=== PATIENT | female | born 1950 | race Caucasian/White ===

== ENCOUNTER 2024-08-05 12:05 | Inpatient (IN) ==
[2024-08-05] MEDS ORDERED: IOPAMIDOL 100 ML BOTTLE IV ONE (12:06)
[2024-08-05] MEDS: 0.9 % SODIUM CHLORIDE 1,000 ML IV ONE (12:58)
[2024-08-05] MEDS: 0.9 % SODIUM CHLORIDE 500 ML IV ONE (13:03)
[2024-08-05 13:33] LABS: Basophils # (Auto) 0.01 K/mcL (0.00-0.30); Basophils % (Auto) 0.1 % (0.0-2.0); Eosinophils # (Auto) 0.01 K/mcL (0.00-0.70); Eosinophils % (Auto) 0.1 % (0.0-7.0); Hematocrit 25.6 % (34.1-44.9); Hemoglobin 7.5 g/dL (11.2-15.7); Lymphocytes # (Auto) 0.38 K/mcL (1.50-4.80); Lymphocytes % (Auto) 3.7 % (15.5-49.0); Mean Cell Volume 83.4 fL (80.0-100.0); Mean Corpuscular HGB Conc 29.3 g/dL (31.0-36.0); Mean Platelet Volume 8.9 fL (8.8-12.5); Monocytes # (Auto) 1.13 K/mcL (0.10-0.90); Monocytes % (Auto) 10.9 % (1.0-12.0); Neutrophils % (Auto) 84.5 % (38.0-78.0); Platelet Count 461 K/mcL (140-440); RBC 3.07 M/mcL (3.59-5.38); Red Cell Distribution Width 16.7 % (11.5-14.5); WBC 10.4 K/mcL (4.5-11.0)
[2024-08-05 13:36] LABS: ABG Methemoglobin 0.2 % (0.4-1.5); Total Hemoglobin 8.7 gm/Dl (12.0-15.0); VBG Base Excess 6 (-2-3); VBG HCO3 27.7 mmol/L (24.0-28.0); VBG Oxygen Saturation 63.3 % (40.0-70.0); VBG PCO2 30.4 mmHg (41.0-51.0); VBG PH 7.58 U (7.32-7.42); VBG PO2 29.7 mmHg (25.0-40.0); VBG Total CO2 28.7 mmol/L (25.0-29.0)
[2024-08-05 13:44] LABS: ALT/SGPT 17 U/L (<40); AST/SGOT 42 U/L (<32); Albumin 2.9 gm/dL (3.2-5.2); Albumin/Globulin Ratio 0.7 (1.0-2.3); Alkaline Phosphatase 155 U/L (39-117); Bilirubin,Total 0.8 mg/dL (0.1-1.0); Blood Urea Nitrogen 7 mg/dL (8-23); Calcium 9.4 mg/dL (8.6-10.4); Carbon Dioxide 27 mmol/L (22-30); Chloride 94 mmol/L (96-108); Glomerular Filtration Rate 85; Glucose 103 mg/dL (70-105); Sodium 137 mmol/L (133-145); Thyroid Stimulating Hormone 0.93 uIU/mL (0.27-5.01)
[2024-08-05] MEDS: 0.9 % SODIUM CHLORIDE 250 ML IV SCH ×2 (14:09→20:05)
[2024-08-05 15:04] LABS: Appearance,Urine Hazy (Clear); Bilirubin,Urine Negative (Negative); Color,Urine Yellow; Glucose,Urine (UA) Negative (Negative); Ketones,Urine Negative (Negative); Leukocyte Esterase,Urine 3+(Large) /uL (Negative); Nitrate,Urine Negative (Negative); Protein,Urine Trace mg/dL (Negative); Specific Gravity,Urine 1.015 (1.000-1.035); Urine Blood Negative (Negative); Urine RBC 2 /hpf (0-3); Urine Squamous Epithelial Cell 1 /hpf (0-4); Urine Transitional Epi Cells 1 /hpf (0-2); Urine WBC 50 /hpf (0-4); Urobilinogen,Urine Normal
[2024-08-05] MEDS: cefTRIAXone 2 GM in DEXTROSE 5% IN WATER 50 ML IV ONE (15:39)
[2024-08-05] MEDS: POTASSIUM CHLORIDE 20 MEQ TABLET PO ONE (18:04)
[2024-08-05 18:46] LABS: Creatine Kinase 19 U/L (24-170)
[2024-08-05] MEDS ORDERED: morphine 4 MG/ML VIAL IV PRN (21:17)
[2024-08-05] MEDS ORDERED: POLYETHYLENE GLYCOL 3350 17 GM PACKET PO PRN (21:17)
[2024-08-05] MEDS ORDERED: SENNOSIDES 1 TABLET PO PRN (21:17)
[2024-08-05] MEDS: CYCLOBENZAPRINE 10 MG TABLET PO PRN (21:31)
[2024-08-05] MEDS: METOCLOPRAMIDE 10 MG/2 ML VIAL IV SCH (21:31)
[2024-08-05] MEDS: HEPARIN 5,000 UNIT/ML VIAL SQ SCH (21:32)
[2024-08-05] MEDS: 0.9 % SODIUM CHLORIDE 10 ML SYRINGE IV SCH (21:37)
[2024-08-05] MEDS: DEXTROSE 5%-1/2NS 1,000 ML IV SCH (21:40)
[2024-08-05] MEDS: 0.9 % SODIUM CHLORIDE 1,000 ML IV SCH (22:04)
[2024-08-05 22:57] LABS: Hematocrit 26.5 % (34.1-44.9); Hemoglobin 7.8 g/dL (11.2-15.7)
[2024-08-05 23:36] LABS: Iron 51 ug/dL (37-145); TIBC Calculation 139 ug/dl (228-428); Transferrin % Saturation 37 % (15-50)
[2024-08-06] MEDS: POTASSIUM CHLORIDE 20 MEQ in DEXTROSE 5% IN WATER 100 ML IV ONE (03:30)
[2024-08-06] MEDS: POTASSIUM CHLORIDE 20 MEQ/10 ML VIAL IV ONE (03:30)
[2024-08-06] MEDS: POTASSIUM CHLORIDE 20 MEQ TABLET PO ONE ×2 (03:32)
[2024-08-06] MEDS: ONDANSETRON 4 MG/2 ML VIAL IV PRN (03:44)
[2024-08-06 06:24] LABS: Basophils # (Auto) 0.02 K/mcL (0.00-0.30); Basophils % (Auto) 0.3 % (0.0-2.0); Eosinophils # (Auto) 0.06 K/mcL (0.00-0.70); Eosinophils % (Auto) 0.8 % (0.0-7.0); Hematocrit 25.7 % (34.1-44.9); Hemoglobin 7.8 g/dL (11.2-15.7); Lymphocytes # (Auto) 0.25 K/mcL (1.50-4.80); Lymphocytes % (Auto) 3.4 % (15.5-49.0); Mean Corpuscular HGB Conc 30.4 g/dL (31.0-36.0); Mean Platelet Volume 8.5 fL (8.8-12.5); Monocytes % (Auto) 13.6 % (1.0-12.0); Neutrophils % (Auto) 80.5 % (38.0-78.0); Platelet Count 379 K/mcL (140-440); RBC 3.06 M/mcL (3.59-5.38); Red Cell Distribution Width 16.6 % (11.5-14.5); WBC 7.4 K/mcL (4.5-11.0)
[2024-08-06 07:23] LABS: ALT/SGPT 16 U/L (<40); AST/SGOT 42 U/L (<32); Albumin 2.6 gm/dL (3.2-5.2); Albumin/Globulin Ratio 0.8 (1.0-2.3); Alkaline Phosphatase 136 U/L (39-117); Bilirubin,Direct 0.3 mg/dL (<0.3); Bilirubin,Total 0.6 mg/dL (0.1-1.0); Blood Urea Nitrogen 7 mg/dL (8-23); Calcium 8.7 mg/dL (8.6-10.4); Carbon Dioxide 27 mmol/L (22-30); Chloride 104 mmol/L (96-108); Globulin 3.4 gm/dL (2.2-3.7); Glomerular Filtration Rate 90; Glucose 104 mg/dL (70-105); Lactate Dehydrogenase 127 U/L (135-225); Phosphorous 2.5 mg/dL (2.5-4.5); Sodium 142 mmol/L (133-145); Triglycerides 124 mg/dL (<150); Uric Acid 3.8 mg/dL (2.5-8.0)
[2024-08-06] MEDS: ACETAMINOPHEN 1,000 MG/100 ML BAG IV ONE (10:10)
[2024-08-06] MEDS: FUROSEMIDE 40 MG/4 ML VIAL IV ONE (10:52)
[2024-08-06] MEDS: 0.9 % SODIUM CHLORIDE 250 ML IV SCH (12:46)
[2024-08-06] MEDS: cefTRIAXone 1 GM VIAL IV SCH (17:01)
[2024-08-06 17:37] LABS: Blood Urea Nitrogen 7 mg/dL (8-23); Calcium 9.3 mg/dL (8.6-10.4); Carbon Dioxide 27 mmol/L (22-30); Chloride 103 mmol/L (96-108); Glomerular Filtration Rate 73; Glucose 136 mg/dL (70-105); Potassium 3.9 mmol/L (3.3-5.1); Sodium 142 mmol/L (133-145)
[2024-08-06] MEDS: ACETAMINOPHEN 500 MG TABLET PO PRN (23:27)
[2024-08-07 06:35] LABS: Basophils # (Auto) 0.01 K/mcL (0.00-0.30); Basophils % (Auto) 0.1 % (0.0-2.0); Eosinophils % (Auto) 1.1 % (0.0-7.0); Hematocrit 25.8 % (34.1-44.9); Hemoglobin 7.7 g/dL (11.2-15.7); Lymphocytes % (Auto) 3.4 % (15.5-49.0); Mean Corpuscular HGB Conc 29.8 g/dL (31.0-36.0); Mean Platelet Volume 8.7 fL (8.8-12.5); Monocytes % (Auto) 13.5 % (1.0-12.0); Neutrophils % (Auto) 81.1 % (38.0-78.0); Platelet Count 391 K/mcL (140-440); Red Cell Distribution Width 16.9 % (11.5-14.5); WBC 8.9 K/mcL (4.5-11.0)
[2024-08-07 07:05] LABS: ALT/SGPT 12 U/L (<40); AST/SGOT 25 U/L (<32); Albumin 2.6 gm/dL (3.2-5.2); Albumin/Globulin Ratio 0.8 (1.0-2.3); Alkaline Phosphatase 138 U/L (39-117); Bilirubin,Direct 0.2 mg/dL (<0.3); Bilirubin,Total 0.4 mg/dL (0.1-1.0); Blood Urea Nitrogen 11 mg/dL (8-23); Calcium 9.3 mg/dL (8.6-10.4); Carbon Dioxide 28 mmol/L (22-30); Chloride 104 mmol/L (96-108); Globulin 3.2 gm/dL (2.2-3.7); Glomerular Filtration Rate 85; Glucose 100 mg/dL (70-105); Lactate Dehydrogenase 113 U/L (135-225); Phosphorous 3.2 mg/dL (2.5-4.5); Potassium 3.4 mmol/L (3.3-5.1); Sodium 143 mmol/L (133-145); Triglycerides 99 mg/dL (<150); Uric Acid 3.5 mg/dL (2.5-8.0)
[2024-08-07] MEDS: METOCLOPRAMIDE 10 MG/2 ML VIAL IV SCH (15:15)
[2024-08-08 06:42] LABS: Hematocrit 25.2 % (34.1-44.9); Hemoglobin 7.5 g/dL (11.2-15.7)
[2024-08-09 07:07] LABS: Hematocrit 24.4 % (34.1-44.9); Hemoglobin 7.2 g/dL (11.2-15.7)
[2024-08-09] MEDS ORDERED: 0.9 % SODIUM CHLORIDE 250 ML IV SCH (08:15)
== END 2024-08-09 13:10 | DRG 841 ==
LOC: MEDSUR 12:05 → ED 12:05 → MEDSUR 21:05
PROVIDERS: ADMIT Student in an Organized Health Care Education/Training Program; ATTEND Internal Medicine